=== PATIENT | male | born 1980 | race Caucasian/White ===

== ENCOUNTER 2018-06-10 19:14 | Emergency (ER) | payer OTHER ==
--- NOTE | 2018-06-10 19:27 | PDOC ---
History of Present Illness - General History Source: Patient Exam Limitations: No Limitations - History of Present Illness Initial Comments: 06/10/18 20:09 A portion of this note was documented by scribe services under my direction. I have reviewed the details of the note, within reason, and agree with the documentation with the following case summary and management plan written by me. Patient treated in the ED. Nursing notes are reviewed and incorporated into the medical decision-making. Vital signs reviewed. Assessment and plan: This is a 37-year-old male who comes in complaining of 3 days of upper respiratory tract type symptoms, nasal congestion dry cough and some mild body aches. Patient did not get his flu shot however his symptoms are mild and unlikely to be influenza. I did tell patient however when he is feeling better he should get his flu shot I recommended that patient go to the pharmacy get [id number]'s DayQuil and NyQuil take as directed in addition to that take take some Tylenol or Motrin for the other symptoms. Patient discharged home <Napoleon Dupree I - Last Filed: 06/10/18 20:09> - History of Present Illness Initial Comments: 06/10/18 20:15 The patient is a 37 year old male, with no significant past medical history, who presents to the emergency department with sinus congestion, chills, and dry cough since last night. He states he slightly feels better today, however, he was hospitalized last year for similar symptoms which prompted his ED visit today. He states he has not had the flu vaccine and works in the public. The patient denies chest pain, shortness of breath, headache and dizziness. The patient denies fever, chills, nausea, vomit, diarrhea and constipation. The patient denies dysuria, frequency, urgency and hematuria. PAST MEDICAL HISTORY: no significant history PAST SURGICAL HISTORY: no significant history FAMILY HISTORY: no pertinent history SOCIAL HISTORY: Pt lives with family and is employed. Daily smoker. MEDICATIONS: reviewed ALLERGIES: As per nursing notes ROS General: No fevers or chills, no weakness, no weight loss HEENT: (+) sinus congestion. No change in vision. No sore throat,. No ear pain CardioVascular: No chest pain or shortness of breath Respiratory:(+) dry cough, no wheezing. Gastrointestinal: no nausea, vomiting, diarrhea or constipation, No rectal bleeding Genitourinary: No dysuria, hematuria, or frequency Musculoskeletal: No joint or muscle pain or swelling Neurologic: No headache, vertigo, dizziness or loss of consciousness Psychiatric: nor depression Skin: No rashes or easy bruising Endocrine: no increased thirst or abnormal weight change Allergic: no skin or latex allergy All other systems reviewed and normal Exam: General: Well-nourished well-developed individual, no acute distress HEENT: Throat: Normal, tonsils normal, no erythema or exudate Neck: Supple, no meningeal signs, no lymphadenopathy Eyes::Pupils equal reactive and round, extraocular motion intact Chest: Nontender to palpation Cardiac: S1-S2 normal, regular rate and rhythm, no murmurs rubs or gallops Respiratory: Lungs clear to auscultation bilateral Abdomen: Soft, nondistended, normal bowel sounds, nontender to palpation diffusely Extremities: Warm, dry, no cyanosis, clubbing, or edema Skin: No rashes Neuro: Alert and oriented x3, nonfocal exam, grossly intact, normal gait Psych: Normal mood and affect Documentation prepared by Yessenia Garcia, acting as medical voucher clerk for Napoleon Dupree MD <Yessenia Garcia - Last Filed: 06/10/18 20:15> - General Chief Complaint: Cold Symptoms Stated Complaint: HEAD CONGESTION Time Seen by Provider: 06/10/18 19:17 Past History - Past Medical History COPD: No - Suicide/Smoking/Psychosocial Hx Smoking History: Current every day smoker Number of Cigarettes Smoked Daily: 3 Information on smoking cessation initiated: Yes Hx Alcohol Use: (UNKNOWN) <Napoleon Dupree I - Last Filed: 06/10/18 20:09> <Yessenia Garcia - Last Filed: 06/10/18 20:15> - Past Medical History Allergies/Adverse Reactions: Allergies Allergy/AdvReac Type Severity Reaction Status Date / Time No Known Allergies Allergy Unverified 06/10/18 19:15 Home Medications: Ambulatory Orders NK [No Known Home Medication] 06/10/18 *Physical Exam - Vital Signs Last Vital Signs Temp Pulse Resp BP Pulse Ox 98.2 F 81 16 136/79 98 06/10/18 19:17 06/10/18 19:17 06/10/18 19:17 06/10/18 19:17 06/10/18 19:17 <Napoleon Dupree I - Last Filed: 06/10/18 20:09> - Vital Signs Last Vital Signs Temp Pulse Resp BP Pulse Ox 98.2 F 81 16 136/79 98 06/10/18 19:17 06/10/18 19:17 06/10/18 19:17 06/10/18 19:17 06/10/18 19:17 <Yessenia Garcia - Last Filed: 06/10/18 20:15> Moderate Sedation - Procedure Monitoring Vital Signs: Procedure Monitoring Vital Signs Temperature 98.2 F 06/10/18 19:17 Pulse Rate 81 06/10/18 19:17 Respiratory Rate 16 06/10/18 19:17 Blood Pressure 136/79 06/10/18 19:17 O2 Sat by Pulse Oximetry (%) 98 06/10/18 19:17 <Napoleon Dupree I - Last Filed: 06/10/18 20:09> - Procedure Monitoring Vital Signs: Procedure Monitoring Vital Signs Temperature 98.2 F 06/10/18 19:17 Pulse Rate 81 06/10/18 19:17 Respiratory Rate 16 06/10/18 19:17 Blood Pressure 136/79 06/10/18 19:17 O2 Sat by Pulse Oximetry (%) 98 06/10/18 19:17 <Yessenia Garcia - Last Filed: 06/10/18 20:15> *DC/Admit/Observation/Transfer - Discharge Dispostion Decision to Admit order: No <Napoleon Dupree I - Last Filed: 06/10/18 20:09> <Yessenia Garcia - Last Filed: 06/10/18 20:15> Diagnosis at time of Disposition: Viral upper respiratory infection - Discharge Dispostion Disposition: HOME Condition at time of disposition: Stable - Patient Instructions Printed Discharge Instructions: DI for Viral Upper Respiratory Infection -- Adult Additional Instructions: Tylenol or Motrin if needed for body aches or fevers. The pharmacy and purchased some [id number]-jrl-ncyuvqt decongestant such as DayQuil or NyQuil and take as directed on the bottle. Return to the emergency department immediately with ANY new, persistent or worsening symptoms. Continue any medications as previously prescribed by your physician. You should follow up with your primary doctor as soon as possible regarding today's emergency department visit. . Please make sure your doctor reviews the results of your emergency evaluation. Thank you for coming to the Emergency Department today for your care. It was a pleasure to see you today. Please note that your evaluation is INCOMPLETE until you follow-up with your doctor.
[2018-06-10 19:35] VITALS: BP 136/79; PULSE 81; TEMP 98.2; BMI 36.3
== END 2018-06-10 20:15 | disposition home or self-care (01) ==
LOC: FER 19:14
DX: J06.9 Acute upper respiratory infection, unspecified (principal); B97.89 Other viral agents as the cause of diseases classified elsewhere; F17.210 Nicotine dependence, cigarettes, uncomplicated
CPT/HCPCS: 99282-25

== ENCOUNTER 2018-12-14 20:35 | Emergency (ER) | payer OTHER ==
[2018-12-14 20:45] VITALS: BP 110/73; PULSE 80; TEMP 98; BMI 28.7
--- NOTE | 2018-12-14 20:48 | PDOC ---
History of Present Illness - General Chief Complaint: Pain, Acute Stated Complaint: LEFT FLANK PAIN RADIATING INTO GROIN X 2 WEEKS Time Seen by Provider: 12/14/18 20:36 - History of Present Illness Initial Comments: Mr. Gaitan is a 38M with past hx of kidney stones (four years ago) presenting today with 2.5 weeks of colicky right sided flank pain that has not improved or worsened. He was seen at an urgent care who sent him here. Denies fever, chills, dysuria, hematuria, penile discharge. Unsure about the treatment for the previous kidney stones. Past History - Past Medical History Allergies/Adverse Reactions: Allergies Allergy/AdvReac Type Severity Reaction Status Date / Time No Known Allergies Allergy Verified 12/14/18 20:38 Home Medications: Ambulatory Orders Ciprofloxacin [Cipro -] 500 mg PO Q12H #20 tablet 12/14/18 COPD: No Other medical history: DENIES - Suicide/Smoking/Psychosocial Hx Smoking History: Current every day smoker Number of Cigarettes Smoked Daily: 3 Information on smoking cessation initiated: Yes Hx Alcohol Use: No Drug/Substance Use Hx: No Review of Systems - Review of Systems Able to Perform ROS?: Yes Is the patient limited Luxembourger proficient: No Constitutional: Yes: See HPI. No: Chills, Diaphoresis, Fever Respiratory: Yes: See HPI. No: Cough, Shortness of Breath Cardiac (ROS): Yes: See HPI. No: Chest Pain, Edema ABD/GI: Yes: See HPI. No: Nausea, Vomiting, Abdominal cramping : Yes: See HPI, Flank Pain. No: Burning, Dysuria, Discharge, Hematuria, Incontinence Musculoskeletal: Yes: See HPI. No: Back Pain, Joint Pain, Joint Swelling, Joint Stiffness Integumentary: Yes: See HPI. No: Bruising, Dryness, Erythema, Flushing Neurological: Yes: See HPI. No: Headache, Seizure, Dizziness Endocrine: Yes: See HPI. No: Excessive Sweating, Flushing Hematologic/Lymphatic: Yes: See HPI. No: Lymph Node Abnormalities, Swollen Glands *Physical Exam - Vital Signs Last Vital Signs Temp Pulse Resp BP Pulse Ox 98 F 80 16 110/73 98 12/14/18 20:41 12/14/18 20:41 12/14/18 20:41 12/14/18 20:41 12/14/18 20:41 - Physical Exam General Appearance: Yes: Nourished, Appropriately Dressed. No: Apparent Distress HEENT: positive: EOMI, NOE, Normal Voice, Symmetrical, Pharynx Normal Neck: positive: Trachea midline, Supple. negative: Tender, Rigid Respiratory/Chest: positive: Lungs Clear, Normal Breath Sounds. negative: Chest Tender, Respiratory Distress, Accessory Muscle Use Cardiovascular: positive: Regular Rhythm, Regular Rate Vascular Pulses: Dorsalis-Pedis (R): 2+, Doralis-Pedis (L): 2+ Gastrointestinal/Abdominal: positive: Flat, Soft. negative: Tender Musculoskeletal: positive: Normal Inspection. negative: CVA Tenderness Extremity: positive: Normal Capillary Refill, Normal Inspection, Normal Range of Motion. negative: Tender Integumentary: positive: Normal Color, Dry, Warm Neurologic: positive: sports reporter II-XII NML intact, Fully Oriented, Alert, Normal Mood/ Affect, Normal Response, Motor Strength 5/5 ED Treatment Course - ADDITIONAL ORDERS Additional order review: Laboratory Results 12/14/18 20:40 Urine Color Yellow Urine Appearance Clear Urine pH 5.5 Urine Protein Negative Urine Glucose (UA) Negative Urine Ketones Negative Urine Blood Negative Urine Nitrite Negative Urine Bilirubin Negative Urine Urobilinogen 0.2 Ur Leukocyte Esterase Negative Medical Decision Making - Medical Decision Making 12/14/18 2055 38M with past hx of kidney stones 4 years ago presenting with 2.5 weeks of colicky right flank pain. Denies fever, chills, nausea, vomiting, dysuria, hematuria, penile discharge. No CVA tenderness. DDx includes nephrolithiasis vs less likely pyelonephritis vs less likely UTI. We will obtain CBC, CMP, and CT spiral. 12/14/18 21:15 Pt refused IV. Unable to draw labs. 12/14/18 22:00 Patient signed out to Dr. Nunes. *DC/Admit/Observation/Transfer Diagnosis at time of Disposition: Orchitis, Bilateral varicoceles - Discharge Dispostion Disposition: HOME Condition at time of disposition: Stable - Prescriptions Prescriptions: Ciprofloxacin [Cipro -] 500 mg PO Q12H #20 tablet - Referrals Referrals: [facility] [place] [facility] [place] [Provider Group] [facility] [Provider Group] Emil Sky MD [Staff Physician] - Héctor Peng MD., MD [Staff Physician] - - Patient Instructions Printed Discharge Instructions: Kidney Stones -- Adult, Epididymitis Additional Instructions: 1) Please follow-up with your primary care doctor in the next 1-2 days. Please call tomorrow for for any urgent issues. please visit a urologist, referrals given for your presentation today 2) You were given a copy of the tests performed today. Please bring the results with you and review them with your primary care doctor. Your laboratory / imaging results were normal, there was kidney stones but nonobstructing. ultrasound with varicoceles with possible orchitis or infection of the testes 3) If you have any worsening of symptoms or any other concerns please return to the ED immediately. Return if worsening symptoms including fevers, headache, vomiting, visual or hearing disturbances, abdominal pain, chest pain, shortness of breath, syncope, dehydration, inability to take things by mouth/vomiting, altered mental status, or worsening concerning symptoms. 4) Please continue taking your home medications as directed. your medications on discharge include ciprofloxacin twice a day x 10 days for the orchitis. . side effects may include upset stomach, abdominal pain, vomiting, or diarrhea. do not drink alcohol with your medications. Stay well hydrated and rest adequately. Make an appointment. If you cannot follow-up with your primary care doctor please return to the ED - Post Discharge Activity
[2018-12-14] MEDS ORDERED: LIDOCAINE 5% TOPICAL PATCH TP ONE (21:52)
[2018-12-14] MEDS ORDERED: IBUPROFEN 600 MG TABLET (FP) PO ONE ×2 (21:52→22:04)
--- NOTE | 2018-12-14 21:52 | PDOC ---
Documentation entered by Marilee Vigil SCRIBE, acting as scribe for Mary Nunes MD. Mary Nunes MD: This documentation has been prepared by the Yaritza cevallos Renju, SCRIBE, under my direction and personally reviewed by me in its entirety. I confirm that the documentation accurately reflects all work, treatment, procedures, and medical decision making performed by me. Attending Attestation - Resident Resident Name: Natanael - ED Attending Attestation I have performed the following: I have examined & evaluated the patient, The case was reviewed & discussed with the resident, I agree w/resident's findings & plan - HPI HPI: 12/14/18 21:12 38 yo M with hx of kidney stones presenting to the ED for evaluation of a 2.5 week history of intermittent episodes of right upper back/flank pain, now radiating to right groin and lower abdomen. x 2.5 weeks. denies triggers or stressors. denies trauma. he admits to working at gas station , does bending and lifting. flank/back pain worse with bending forward and activity. Pt states he visited an urgent care this afternoon where he was prompted to visit the ED for further evaluation. no hematuria, urgency/frequency, dysuria. no f/c. no abdominal pain, n/v/d. some scrotal pain, no swelling, no trauma there, no urethral discharge or urinary sx. no analgesia agents taken 12/14/18 21:48 - Physicial Exam PE: 12/14/18 21:12 NAD, well appearing, EOMI, PERRL, nl conjunctiva, anicteric; neck supple. lungs clear, RRR, abdomen soft nontender. no CVAT. Back nontender. SPANN x4, no focal neuro deficits. No peripheral edema. normal color for ethnicity, WWP. : normal external genitalia, no lesions, normal testicular lie, +scrotal tenderness, no edema or discoloration. +cremaster reflex bilaterally. no hernia. 12/14/18 21:47 - Medical Decision Making 12/14/18 21:50 hpi as documented VS reviewed, wnl no fever/systemic sx. DDX. renal colic/ureterolithiasis. UTI pyelo, appy, msk strain, testicular torsion, orchitis/epididymitis, ED course: refused labs after one attempt. analgesia, topical lido patch. clinically improved, has been ambulatory in department. no abdominal sx. UA neg for blood or infection, f/u culture. CT [place] to eval for stone and alternative etiology given sx. no acute pathology , no hydro; left sided nonobstructing renal calculi. Sono scrotal contents to check for infection/torsion. varicoceles, hydroceles; no torsion or abnormal lie. epididymal cyst. rt orchitis with increased vascularity? will treat with abx. ciprofloxacin x 10 days course scrotal support advised, briefs. Pt to be discharged in stable condition. Patient and family made aware of clinical impression, treatment recommendations and disposition plan, return precautions discussed (including but not limited to new or persistent/worsening symptoms, pain, fevers, or signs of infection, chest pain, respiratory distress , inability to tolerate oral intake, dehydration, syncope, or neurologic changes ). Follow up with PMD and/or urology specialist as recommended, follow up information provided, take medications as instructed for duration of time. continue with supportive care, avoid triggers and precipitants. All questions answered to patient's satisfaction and expressed understanding and comfort with this. At the time of discharge, the patient is alert, clinically improved, tolerating po and verbalizes understanding of instructions, satisfied with the care received and felt comfortable with the plan. Patient does not suffer from an acute life-threatening medical condition at this time and is safe for outpatient follow-up. 12/14/18 23:33 12/14/18 23:51 12/15/18 00:14 *DC/Admit/Observation/Transfer Diagnosis at time of Disposition: Orchitis, Bilateral varicoceles - Discharge Dispostion Disposition: HOME Condition at time of disposition: Stable Decision to Admit order: No - Prescriptions Prescriptions: Ciprofloxacin [Cipro -] 500 mg PO Q12H #20 tablet - Referrals Referrals: Héctor Peng MD., [Staff Physician] - Emil Sky MD [Staff Physician] - [facility] [place] [facility] [place] [Provider Group] [facility] [Provider Group] - Patient Instructions Printed Discharge Instructions: Kidney Stones -- Adult, Epididymitis Additional Instructions: 1) Please follow-up with your primary care doctor in the next 1-2 days. Please call tomorrow for for any urgent issues. please visit a urologist, referrals given for your presentation today 2) You were given a copy of the tests performed today. Please bring the results with you and review them with your primary care doctor. Your laboratory / imaging results were normal, there was kidney stones but nonobstructing. ultrasound with varicoceles with possible orchitis or infection of the testes 3) If you have any worsening of symptoms or any other concerns please return to the ED immediately. Return if worsening symptoms including fevers, headache, vomiting, visual or hearing disturbances, abdominal pain, chest pain, shortness of breath, syncope, dehydration, inability to take things by mouth/vomiting, altered mental status, or worsening concerning symptoms. 4) Please continue taking your home medications as directed. your medications on discharge include ciprofloxacin twice a day x 10 days for the orchitis. . side effects may include upset stomach, abdominal pain, vomiting, or diarrhea. do not drink alcohol with your medications. Stay well hydrated and rest adequately. Make an appointment. If you cannot follow-up with your primary care doctor please return to the ED - Post Discharge Activity
[2018-12-14] MEDS ORDERED: LIDOCAINE 5% TOPICAL PATCH ONE (22:04)
== END 2018-12-15 00:13 | disposition home or self-care (01) ==
LOC: FER 20:35
DX: N45.2 Orchitis (principal); I86.1 Scrotal varices; F17.210 Nicotine dependence, cigarettes, uncomplicated
CPT/HCPCS: 74176-TC; 76870-TC; 81003; 87086; 99282-25

== ENCOUNTER 2019-03-28 08:58 | Day surgery (SDC) | payer OTHER ==
[2019-03-24 19:57] VITALS: BMI 31.5
[2019-03-28] MEDS ORDERED: BUPIVACAINE HCL/PF 0.25% (2.5MG/ML) 10 ML VIAL ONE (10:18)
[2019-03-28] MEDS ORDERED: ONDANSETRON 4 MG/2 ML VIAL IVPUSH PRN (11:32)
[2019-03-28] MEDS ORDERED: oxyCODONE HCL 5 MG TABLET PO PRN ×2 (11:32)
[2019-03-28] MEDS ORDERED: LACTATED RINGERS SOLUTION 1,000 ML IV SCH (11:45)
[2019-03-28] MEDS ORDERED: MIDAZOLAM HCL 2 MG/2 ML SINGLE DOSE VIAL ONE (11:49)
[2019-03-28] MEDS ORDERED: PROPOFOL 20 ML ONE ×2 (11:56)
[2019-03-28] MEDS ORDERED: ROCURONIUM BROMIDE 50 MG/5 ML SYRINGE ONE ×2 (11:57)
[2019-03-28] MEDS ORDERED: ceFAZolin SODIUM 1 GM VIAL IVPB ONE (12:10)
[2019-03-28] MEDS ORDERED: ceFAZolin SODIUM 1 GM VIAL ONE (12:13)
[2019-03-28] MEDS ORDERED: DEXAMETHASONE SOD PHOSPHATE 4 MG/1 ML VIAL ONE (12:13)
[2019-03-28] MEDS ORDERED: LIDOCAINE HCL/PF 2% SDV 5ML VIAL ONE (12:14)
[2019-03-28] MEDS ORDERED: NEOSTIGMINE METHYLSULFATE 0.5 MG/ML - 10 ML MDV ONE (12:14)
[2019-03-28] MEDS ORDERED: BUPIVACAINE HCL 0.25% 125 MG/50 ML VIAL NR ONE (12:20)
[2019-03-28] MEDS ORDERED: KETOROLAC TROMETHAMINE 30 MG/1 ML VIAL ONE (12:24)
[2019-03-28] MEDS ORDERED: GLYCOPYRROLATE 0.2 MG/1 ML VIAL ONE ×2 (12:24)
[2019-03-28] MEDS ORDERED: BACITRACIN 15 GM TUBE TOPICAL OINTMENT ONE (13:13)
--- NOTE | 2019-03-28 13:30 | OP ---
Operative Note - Note: Operative Date: 03/28/19 Pre-Operative Diagnosis: penile chordee, oren. varicoceles Operation: penoplasty and oren. varicocelectomy Post-Operative Diagnosis: Same as Pre-op Herb Doctor: Andrade Govea Anesthesia: General Specimens Removed: penile scar tissue and oren varicoceles and rt. cord lipoma Estimated Blood Loss (mls): 20 Drains, Volume Out (mls): 0 Blood Volume Replaced (mls): 0 Fluid Volume Replaced (mls): 0 Operative Report Dictated: Yes
[2019-03-28] MEDS ORDERED: oxyCODONE HCL 5 MG TABLET PO ONE (15:30)
[2019-03-28] MEDS ORDERED: oxyCODONE HCL 5 MG TABLET ONE (15:34)
[2019-03-28 15:54] VITALS: TEMP 98
[2019-03-28 17:15] VITALS: BP 115/64; PULSE 98
--- NOTE | 2019-03-28 17:58 | HP ---
DATE OF ADMISSION: 03/28/2019 HISTORY: Patient is a 38-year-old male with a history of hypogonadism, fatigue, diminished libido, and weak erections. Semen analysis revealed oligospermia. Patient denies any past medical problems. He does smoke 1 packs of cigarettes a day. He denies any allergies. PHYSICAL EXAMINATION: General: Reveals a well-developed, adult male. Abdomen: Soft. No CVA tenderness. Genitourinary: Genitalia reveals bilateral scrotal varicoceles as well as bilateral hydroceles. 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 Patient states that there is angulation of the penis during erection, and this causes discomfort and weak erections. He denies any voiding symptoms. His BUN 16, creatinine 0.9. His serum testosterone is 126. Presently, he is on hormone replacement therapy. IMPRESSION: At present is bilateral varicoceles with bilateral hydroceles, penile adhesions, and penile deformity. PLAN: Patient will undergo bilateral scrotal exploration, bilateral varicocelectomies, bilateral hydrocelectomies, and penoplasty. Procedure has been explained to patient, and he agrees. Mehdi [id number]
--- NOTE | 2019-03-28 18:17 | OP ---
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 OPERATIVE PROCEDURE: Penoplasty, bilateral varicocelectomies. ANESTHESIA: General. BLOOD LOSS: 20 mL. DESCRIPTION OF PROCEDURE: Under above stated anesthesia, patient was prepped and draped in the usual sterile manner. He is placed in the supine position. An artificial erection was created by placing a tourniquet at the base of the penis and injecting the right corpora with 60 mL of normal saline. This revealed a 30 degree dorsal chordae. A circumferential incision was made below the licea of the penis. This was carried down through skin and subcutaneous tissue. The entire penile shaft was degloved. Using sharp dissection, the corpus spongiosum was lysed off the urethra. Hemostasis was secured with electrocoagulation. The distal end of the urethra was then anastomosed to the neomeatus using 6-0 Vicryl suture ligatures. A repeat artificial erection revealed straightening of the penis. Therefore skin from the glands and skin from the shaft was approximated using 5-0 Vicryl suture ligatures. Attention was then paid to the bilateral varicoceles. The right varicocelectomy was performed by making a right inguinal incision. This was carried down through skin and subcutaneous tissue. External oblique fascia was isolated and opened in the direction of its fibers. Using both blunt and sharp dissection, the cord and its structures were isolated and brought out the wound. Using meticulous dissection, the vas deferens, the vasal artery and spermatic artery were lysed off the cord structures. Multiple varicose veins as well as adipose tissue and dartos muscle was left in the varicose specimen. Proximal and distal ends of the varicose veins were clamped, 1-cm segment was excised. Proximal and distal ends were suture ligated with 2-0 Vicryl suture ligature and tied with 2-0 Vicryl sutures. No active bleeding as noted in the groin. The wound was irrigated. 10 mL of Marcaine was placed in the area of the right inguinal canal. The external oblique fascia was then closed with running 3-0 Vicryl suture ligatures. The subcutaneous was closed with 3-0 Vicryl suture ligatures. The skin was closed with rafa. Same thing was done on the left side. The patient tolerated the procedure well. He returned to the recovery room in good condition. Mehdi [id number]
--- NOTE | 2019-03-30 19:16 | PATH ---
Surgical Pathology Report Patient Name: ROSALINA MATHIS [facility]. Rec. #: [id number] /Age/Gender: 1980 (Age: 38) / M Account: [id number] Location: [facility] Taken: 03/28/2019 Received: 03/29/2019 Reported: 03/30/2019 Physicians: Andrade Govea M.D. Specimen(s) Received A: SCAR TISSUE PENIS B: LT VARICOCELE C: LIPOMA FROM SPERMATIC CORD D: RT VARICOCELE COMPLEX Clinical History Bilateral varicocele Final Diagnosis A. SCAR TISSUE, PENIS, EXCISION: SEGMENT OF SKIN WITH NO SIGNIFICANT PATHOLOGIC CHANGE. B. LEFT VARICOCELE, EXCISION: CONSISTENT WITH VARICOCELE. C. LIPOMA FROM LEFT SPERMATIC CORD, EXCISION: MATURE ADIPOSE TISSUE, CONSISTENT WITH LIPOMA. D. RIGHT VARICOCELE COMPLEX, EXCISION: CONSISTENT WITH VARICOCELE. Electronically Signed Fantasma Cardenas M.D. Gross Description A. Received in formalin labeled "scar tissue penis," is a 0.8 x 0.5 x 0.4 cm jimenes brown, unoriented portion of skin. The specimen is bisected and entirely submitted in one cassette. B. Received in formalin labeled "left varicocele," is a 2.7 x 2.2 x 1.2 cm jimenes-yellow portion of fibrofatty tissue. Sugar Controller sections are submitted in one cassette. C. Received in formalin labeled "lipoma from left spermatic cord," is a 3.5 x 1.8 x 1.2 cm portion of yellow, lobulated adipose tissue. Sectioning reveals homogeneous yellow, lobulated adipose tissue. Sugar Controller sections are submitted in one cassette. D. Received in formalin labeled "right varicocele complex," is a 3.2 x 1.5 x 1.0 cm jimenes-yellow portion of fibrofatty tissue. Sugar Controller sections are submitted in one cassette. DL/03/29/2019 saudi03/29/2019
== END 2019-03-28 17:00 | disposition home or self-care (01) ==
LOC: JASU-SURG 08:58
PROVIDERS: ATTEND Urology
PROC: 0VBH0ZZ Excision of Bilateral Spermatic Cords, Open Approach (ICD-10-PCS; principal; 2019-03-28 11:00)
DX: I86.1 Scrotal varices (principal); N47.5 Adhesions of prepuce and glans penis; N48.89 Other specified disorders of penis
CPT/HCPCS: 88304-TC; 94760